=== PATIENT | female | born 1980 | race African-American/Black ===

== ENCOUNTER → 2022-03-18 | Emergency (ER) | payer SELFPAY ==
[~2022-03-18] VITALS: Ht 165.1 cm; Wt 127.0 kg
--- NOTE | 2022-03-18 10:34 | NUR ---
c/o left foot pain and swelling tripped and fall yesterday 01/08 ps. PT IS A&OX4, BREATHING EVEN AND UNLABORED ON RA. ABLE TO AMBULATE W/O ASSISTANCE.
[2022-03-18 13:37] VITALS: BP 144/86
== END | disposition home or self-care (01) ==
LOC: ER 10:03
DX: S92.352A Displaced fracture of fifth metatarsal bone, left foot, initial encounter for closed fracture (principal); I10 Essential (primary) hypertension; W01.0XXA Fall on same level from slipping, tripping and stumbling without subsequent striking against object, initial encounter; Y93.89 Activity, other specified; Y92.89 Other specified places as the place of occurrence of the external cause; Y99.8 Other external cause status
CPT/HCPCS: 73630-TC

== ENCOUNTER 2022-03-21 11:10 | Outpatient (CLI) | payer SELFPAY | END 2022-03-21 23:59 | disposition home or self-care (01) | LOC: WOU 11:10 | PROVIDERS: ATTEND Podiatrist Foot & Ankle Surgery | DX: S92.352D Displaced fracture of fifth metatarsal bone, left foot, subsequent encounter for fracture with routine healing (principal); W19.XXXD Unspecified fall, subsequent encounter; R60.0 Localized edema; M79.672 Pain in left foot; I10 Essential (primary) hypertension; Z87.891 Personal history of nicotine dependence | CPT/HCPCS: G0463 ==

== ENCOUNTER 2022-04-04 10:06 | Outpatient (CLI) | payer SELFPAY | END 2022-04-04 23:59 | disposition home or self-care (01) | LOC: RAD 10:06 | PROVIDERS: ATTEND Podiatrist Foot & Ankle Surgery | DX: S92.352D Displaced fracture of fifth metatarsal bone, left foot, subsequent encounter for fracture with routine healing (principal); M77.32 Calcaneal spur, left foot; X58.XXXD Exposure to other specified factors, subsequent encounter | CPT/HCPCS: 73630-TC ==

== ENCOUNTER 2022-04-04 10:33 | Outpatient (CLI) | payer SELFPAY | END 2022-04-04 23:59 | disposition home or self-care (01) | LOC: WOU 10:33 | PROVIDERS: ATTEND Podiatrist Foot & Ankle Surgery | DX: S92.352D Displaced fracture of fifth metatarsal bone, left foot, subsequent encounter for fracture with routine healing (principal); X58.XXXD Exposure to other specified factors, subsequent encounter; R60.0 Localized edema; M79.672 Pain in left foot | CPT/HCPCS: G0463 ==

== ENCOUNTER 2022-05-06 13:51 | Outpatient (CLI) | payer SELFPAY | END 2022-05-06 23:59 | disposition home or self-care (01) | LOC: RAD 13:51 | PROVIDERS: ATTEND Podiatrist Foot & Ankle Surgery | DX: S92.352D Displaced fracture of fifth metatarsal bone, left foot, subsequent encounter for fracture with routine healing (principal); M25.775 Osteophyte, left foot; X58.XXXD Exposure to other specified factors, subsequent encounter | CPT/HCPCS: 73630-TC ==

== ENCOUNTER 2022-06-17 13:26 | Outpatient (CLI) | payer SELFPAY | END 2022-06-17 23:59 | disposition home or self-care (01) | LOC: RAD 13:26 | PROVIDERS: ATTEND Podiatrist Foot & Ankle Surgery | DX: S92.352A Displaced fracture of fifth metatarsal bone, left foot, initial encounter for closed fracture (principal); M77.32 Calcaneal spur, left foot; X58.XXXA Exposure to other specified factors, initial encounter; Y93.9 Activity, unspecified; Y92.89 Other specified places as the place of occurrence of the external cause; Y99.8 Other external cause status | CPT/HCPCS: 73630-TC ==